=== PATIENT | male | born 1950 | race Caucasian/White ===

== ENCOUNTER 2017-11-02 13:00 | Inpatient (IN) ==
[2017-11-02 14:44] LABS: Appearance,Urine CLEAR; Bilirubin,Urine NEG (NEG); Color,Urine YELLOW; Glucose,Urine (UA) NEGATIVE (NEG); Leukocyte Esterase,Urine NEG /uL (NEG); Protein,Urine NEG (NEG); Specific Gravity,Urine 1.024 (1.000-1.035); Urine Blood NEG mg/dL (<0.03)
[2017-11-02 14:57] LABS: Basophils # (Auto) 0 K/mcL (0.0-0.3); Basophils % (Auto) 0.4 % (0.0-2.0); Eosinophils # (Auto) 0.3 K/mcL (0.0-0.7); Eosinophils % (Auto) 2.6 % (0.0-7.0); Granulocytes % (Auto) 59.4 % (38.0-78.0); Lymphocytes # (Auto) 2.9 K/mcL (1.5-4.8); Lymphocytes % (Auto) 29.7 % (15.5-49.0); Mean Cell Volume 87.6 fL (80.0-100.0); Mean Corpuscular HGB Conc 33.9 g/dL (31.0-36.0); Mean Corpuscular Hemoglobin 29.7 pg (26.0-34.0); Monocytes # (Auto) 0.8 K/mcL (0.1-0.9); Monocytes % (Auto) 7.9 % (1.0-12.0); Platelet Count 246 K/mcL (140-440); RBC 5.58 M/mcL (4.50-5.90); Red Cell Distribution Width 13.4 % (11.5-14.5)
[2017-11-02 15:49] LABS: Blood Urea Nitrogen 17 mg/dl (8-23)
[2017-11-08] MEDS ORDERED: ceFAZolin 1 GM VIAL IV SCH ×2 (05:00→10:30)
[2017-11-08] MEDS ORDERED: oxyCODONE 10 MG TAB.ER.12H PO SCH ×2 (05:00→10:30)
[2017-11-08] MEDS ORDERED: CELECOXIB 200 MG CAPSULE PO SCH ×2 (05:00→10:30)
[2017-11-08] MEDS ORDERED: ACETAMINOPHEN 500 MG TABLET PO SCH ×2 (05:00→10:30)
[2017-11-08] MEDS ORDERED: PREGABALIN 75 MG CAPSULE PO SCH ×2 (05:00→10:30)
[2017-11-08] MEDS ORDERED: KETOROLAC 30 MG, ROPIVACAINE HCL/PF 49.5 ML, EPINEPHrine 0.5 MG, 0.9 % SODIUM CHLORIDE ... IJ SCH (10:00)
[2017-11-08] MEDS ORDERED: GENTAMICIN SULFATE 800 MG/20 ML VIAL IR ONE (11:03)
[2017-11-08] MEDS ORDERED: TRANEXAMIC ACID 1,000 MG/10 ML VIAL IV ONE ×3 (11:55→13:47)
[2017-11-08] MEDS ORDERED: DEXAMETHASONE 10 MG/ML VIAL IV ONE (11:55)
[2017-11-08] MEDS ORDERED: ONDANSETRON 4 MG/2 ML VIAL IV ONE (11:55)
[2017-11-08] MEDS ORDERED: PROPOFOL 200 MG/20 ML VIAL IV ONE (11:55)
[2017-11-08] MEDS ORDERED: LIDOCAINE HCL/PF 100 MG/5 ML SYRINGE IV ONE (11:55)
[2017-11-08] MEDS ORDERED: ePHEDrine 50 MG/ML AMPUL IV ONE (11:55)
[2017-11-08] MEDS ORDERED: MIDAZOLAM 5 MG/5 ML VIAL IV ONE (11:55)
[2017-11-08] MEDS ORDERED: PROMETHAZINE 25 MG/ML VIAL IV PRN (12:48)
[2017-11-08] MEDS ORDERED: IPRATROPIUM/ALBUTEROL 3 ML AMPUL.NEB NEB PRN (12:48)
[2017-11-08] MEDS ORDERED: fentaNYL 100 MCG/2 ML VIAL IV PRN (12:48)
[2017-11-08] MEDS ORDERED: NALOXONE HCL 0.4 MG/ML VIAL IV PRN (12:48)
[2017-11-08] MEDS ORDERED: FLUMAZENIL 0.1 MG/ML ML IV PRN (12:48)
[2017-11-08] MEDS ORDERED: ONDANSETRON 4 MG/2 ML VIAL IV PRN ×2 (12:48→13:24)
[2017-11-08] MEDS ORDERED: LACTATED RINGERS 250 ML IV PRN (12:48)
[2017-11-08] MEDS ORDERED: diphenhydrAMINE 50 MG/ML VIAL IV PRN (12:48)
[2017-11-08] MEDS ORDERED: MEPERIDINE 50 MG/ML INJECTION IV PRN (12:48)
[2017-11-08] MEDS ORDERED: BENZOCAINE/MENTHOL 1 LOZENGE PO PRN ×2 (12:48→13:24)
[2017-11-08] MEDS ORDERED: LACTATED RINGERS 1,000 ML IV SCH (13:00)
[2017-11-08] MEDS ORDERED: HYDROmorphone 2 MG/ML VIAL IV PRN (13:24)
[2017-11-08] MEDS ORDERED: TEMAZEPAM 15 MG CAPSULE PO PRN (13:24)
[2017-11-08] MEDS ORDERED: FLEETS ADULT ENEMA PR PRN (13:24)
[2017-11-08] MEDS ORDERED: MAGNESIUM HYDROXIDE 30 ML ORAL.SUSP PO PRN (13:24)
[2017-11-08] MEDS ORDERED: POLYETHYLENE GLYCOL 3350 17 GM PACKET PO PRN (13:24)
[2017-11-08] MEDS ORDERED: ACETAMINOPHEN 325 MG TABLET PO PRN (13:24)
[2017-11-08] MEDS ORDERED: BISACODYL 10 MG SUPP.RECT PR PRN (13:24)
[2017-11-08] MEDS ORDERED: KETOROLAC 15 MG/ML VIAL IV PRN (13:24)
[2017-11-08] MEDS ORDERED: HYDROcodone/APAP 10/325MG TABLET PO PRN (13:24)
--- NOTE | 2017-11-08 13:31 | Brief Operative Note ---
Date of procedure: 11/08/17 Pre-op diagnosis: Left hip djd severe Post-op diagnosis: same Procedure: left mayelin Grafts/Implants: Yes Anesthesia: GETA Findings: none Complications: none Complications Description: 11/08/17 13:30 none Surgeon: Dilshad Thompson Lens Generating Machine Tender: Maxi Arriaga Estimated blood loss (cc): 50 Specimens Removed/Pathology: none sent Condition: stable Disposition: PACU
--- NOTE | 2017-11-08 14:10 | XRay Report ---
CLINICAL INFORMATION: Postop total left hip prostheses COMPARISON: None. FINDINGS: Total hip prostheses is anatomically aligned. Focal calcification is seen about the inferior capsule. No other osseous abnormality. Moderate L5-S1 L4-5 degenerative disc disease noted IMPRESSION: Left hip prostheses is anatomically aligned. Small amount of calcification overlying the inferior left hip capsule Interpreted and Authenticated by: Harris Horton 11/08/17
[2017-11-08] MEDS: 0.45 % SODIUM CHLORIDE 1,000 ML IV SCH ×2 (14:24→23:44)
[2017-11-08] MEDS: 0.9 % SODIUM CHLORIDE 10 ML SYRINGE IV SCH ×2 (14:24→21:52)
--- NOTE | 2017-11-08 16:26 | Operative Note ---
DATE OF OPERATION: 11/08/2017 PREOPERATIVE DIAGNOSIS: Left hip degenerative arthritis. POSTOPERATIVE DIAGNOSIS: Left hip degenerative arthritis. PROCEDURE: Left total hip arthroplasty from a superior-posterior approach. SURGEON: Dilshad Thompson M.D. IMPLANTS: Augusto cementless components with a 2.5+ ceramic neck length with a 36 mm head with a 60 mm cementless cup. COMPLICATIONS: None. ESTIMATED BLOOD LOSS: Less than 50 mL. ANESTHESIA: General LMA anesthesia with spinal. DESCRIPTION OF PROCEDURE: The patient was brought to the operating room and put to sleep with general LMA anesthesia. Once asleep, the patient had the left hip sterilely prepped and draped in the usual sterile fashion. Ioban placed over the skin. Timeout performed. We confirmed this as the operative site on the left hip. Preop antibiotics and tranexamic acid had been given. We made a superior-posterior approach, dissected through the muscle layer, identified the short external rotator, piriformis obturator internus, as well as the capsule was released and tagged. Once these were released, we dislocated the head. Once this was done, we made our neck cut at 34 mm for a size 5 stem. Once done, the head was removed. We then reamed up the acetabulum up to the size 59, implanted a 60 cup cementless, anteversion 20 degrees, inclination is 40 degrees. We then broached up on the femur, reamed up to the size of 12 distally and took an x-ray with a size 4 stem. This was slightly short, just a couple millimeters. We then implanted a size 5 stem which slightly countersunk as well. This had a 2 mm longer neck. We placed a 2.5 mm neck. This seemed to be very stable and equal leg lengths on the table. We irrigated thoroughly, repaired the capsule with #2 Vicryl, thoroughly irrigated, injected the soft tissues with 50 mL of the post-inject formula. We closed the fascial layer with #1 Stratafix. We then closed the skin with Stratafix and 2-0 Vicryl and adhesive closure. The patient tolerated this well without complication. RBH:jeanette Job ID: [id number] Doc ID: [id number] Dilshad Thompson MD
--- NOTE | 2017-11-08 16:26 | Operative Note ---
DATE OF OPERATION: 11/08/2017 PREOPERATIVE DIAGNOSIS: Left hip degenerative arthritis, severe. POSTOPERATIVE DIAGNOSIS: Left hip degenerative arthritis, severe. PROCEDURE: Left total hip arthroplasty using Augusto components. SURGEON: Dilshad Thompson M.D. TIGER MACHINE OPERATOR: Maxi Arriaga PA-C. ANESTHESIA: Spinal with general LMA anesthesia. COMPLICATIONS: None. IMPLANTS: [place] components, all cementless components. DESCRIPTION OF PROCEDURE: The patient was brought to the operating room and put to sleep with general LMA anesthesia. Once asleep, the patient had the left hip confirmed as the operative site. Preop antibiotics and tranexamic acid had been given. With this, the patient then had an incision made superior-posteriorly and a Charnley retractor placed. We released the capsule superiorly and the short external rotators, exposed the joint, dislocated the hip and made our neck cut at 34 mm in length. We then reamed up to a size 59, implanted a 60 cup with no screws, 20 degrees of anteversion and inclination 40 degrees. A 36 mm poly liner was placed. The femur was broached up to size 4, and it had an x-ray at this position showing slight leg length shortening on the left compared to the right. Once this was done, we then broached up to a size 5 and then placed a +2.5 mm neck. This seemed to be very appropriate stability and range of motion and leg length measurement on the table. We irrigated thoroughly and closed the capsule posteriorly after injecting the soft tissues with the post-inject formula. The fascial layer was closed with #1 Stratafix. Skin was closed with #1 Stratafix and adhesive closure. The patient tolerated this well. There was no complication. RBH:jeanette Job ID: [id number] Doc ID: [id number] Dilshad Thompson MD
[2017-11-08] MEDS: ceFAZolin 1 GM VIAL IV SCH (19:41)
[2017-11-08] MEDS ORDERED: ATORVASTATIN 20 MG TABLET PO SCH (21:00)
[2017-11-08] MEDS ORDERED: SENNOSIDES 1 TABLET PO SCH (21:00)
[2017-11-08] MEDS: DOCUSATE SODIUM 100 MG CAPSULE PO SCH (21:52)
[2017-11-08] MEDS: ASPIRIN 325 MG ENTERIC COATED TABLET PO SCH (21:52)
[2017-11-09] MEDS: ceFAZolin 1 GM VIAL IV SCH (03:26)
[2017-11-09] MEDS: 0.9 % SODIUM CHLORIDE 10 ML SYRINGE IV SCH (05:17)
--- NOTE | 2017-11-09 07:34 | Orthopedic Progress Note ---
Subjective Patient information: Note initiated : 11/09/17 at 7:32 am Service Date, if different from initiated Date: [] Patient: Jose Hair 67 y/o M admitted on 11/08/17 for Left Total Hip Arthroplasty. Chief Complaint: [Pt is stable this morning on post operative day 1 without any significant concerns or complaints. Patients vital signs have remained stable. Patients dressing is dry and is grossly instact from a neurovascular and motor standpoint. Patients 10 point ROS is otherwise negative. ] Objective Vital signs: Vital Signs Temp Pulse Resp BP BP Pulse Ox 11/09/17 07:20 97.3 F 70 14 104/62 93 11/09/17 07:06 82 16 97 11/09/17 06:59 97 11/09/17 06:05 97 11/09/17 03:32 95 11/09/17 03:31 97.4 F 88 14 152/79 95 11/09/17 02:10 97 11/09/17 00:00 97 11/08/17 23:53 97.6 F 84 14 155/85 97 11/08/17 22:00 97 11/08/17 20:00 97.6 F 82 14 146/88 97 11/08/17 18:00 99 11/08/17 17:10 123/74 99 11/08/17 16:29 97 11/08/17 16:10 108/62 93 11/08/17 15:41 115/66 96 11/08/17 15:11 118/59 100 11/08/17 14:57 121/70 100 11/08/17 14:42 119/68 99 11/08/17 14:30 68 16 97 11/08/17 14:27 98 11/08/17 14:26 119/67 97 11/08/17 14:11 141/71 97 11/08/17 14:04 97.9 F 81 15 120/69 99 11/08/17 13:58 80 14 123/78 100 11/08/17 13:54 75 19 123/73 100 11/08/17 13:49 73 14 105/69 98 11/08/17 13:44 60 13 106/62 98 11/08/17 13:39 62 14 101/57 98 11/08/17 13:34 96.2 F L 65 11 L 104/89 97 11/08/17 09:30 58 L 97 11/08/17 09:11 97.0 F 18 160/91 97 Intake and Output 11/08/17 11/09/17 11/09/17 21:59 05:59 13:59 Intake Total 555 / 555 1658 / 1658 773 / 773 Output Total 625 / 625 1275 / 1275 575 / 575 Balance -70 / -70 383 / 383 198 / 198 Intake: IV 933 / 933 773 / 773 Sodium Chloride 0.45% 1,000 ml 933 / 933 773 / 773 @ 100 mls/hr IV .Q10H NICK Rx#: [id number] Oral 480 / 480 725 / 725 IV - Manual Only 75 / 75 Output: Void Amount 625 / 625 1275 / 1275 575 / 575 Other: Meal Dinner Percent of Meal Consumed 100% Feeding Ability Independent # Voids 1 1 Weight 181 lb Intake & Output: Intake & Output 11/08/17 11/09/17 11/09/17 21:59 05:59 13:59 Intake Total 555 / 555 1658 / 1658 773 / 773 Output Total 625 / 625 1275 / 1275 575 / 575 Balance -70 / -70 383 / 383 198 / 198 Weight 181 lb Intake: IV 933 / 933 773 / 773 Sodium Chloride 0.45% 1,000 ml 933 / 933 773 / 773 @ 100 mls/hr IV .Q10H NICK Rx#: [id number] Oral 480 / 480 725 / 725 IV - Manual Only 75 / 75 Output: Void Amount 625 / 625 1275 / 1275 575 / 575 Other: Meal Dinner Percent of Meal Consumed 100% Feeding Ability Independent # Voids 1 1 Incision: Yes healing Incision clean and dry: Yes Dressing: Yes clean Weight bearing status: full Neurological exam IM: Yes motor sensory intact, Yes neurovascular intact Extremities exam IM: Yes Foot pink and warm, Yes neurovascular intact - Labs CBC & BMP: 11/09/17 04:35 11/02/17 13:30 Labs: Orthopedic Labs 11/02/17 13:30 PT 14.0 INR 1.1 APTT 32 11/09/17 11/02/17 04:35 13:31 Hgb 16.6 H Hct 40.3 L 48.8 Assessment and Plan (1) Hx of total hip arthroplasty The patient has been educated regarding dressing care, Physical Therapy recommendations, home exercises, restrictions, and follow up appointments. The patient has had all necessary DME prescribed. The patient has remained stable during their hospital course. The patient was discharge with a stable exam. Leave Dermabond patch intact until followup Status: Acute
--- NOTE | 2017-11-09 07:38 | Discharge Summary ---
Ortho Discharge - [facility] - Patient Instructions Diet: Regular Diet Activity: activity as tolerated, weight bearing as tolerated Total Hip Protocol: Follow activity instructions as provided by Physical Therapy. Dressing Care: May shower in 2 days Patient Education: Total Hip Replacement (DC) - Problem Maintenance (1) Hx of total hip arthroplasty Status: Acute - Follow Up Plan Follow Up Appointments: Maxi Arriaga PA-C [Physician Environmental Sampler] - 11/23/17 10:00 am Disposition: Home, Self-Care Prognosis: Good Rehab Potential: Good I certify that the patient requires SNF services: No Overall status at discharge: patient is progressing back to baseline - Orders For Discharge Prescriptions: Aspirin [Ecotrin] 325 mg PO BID #60 tab.ec Docusate Sodium [Colace] 100 mg PO BID #60 cap HYDROcodone/APAP 10/325MG [[place] 10-325Mg] 1 - 2 tab PO Q4HP PRN #75 tab PRN Reason: Pain Level 3-6
[2017-11-09] MEDS: DOCUSATE SODIUM 100 MG CAPSULE PO SCH (09:23)
[2017-11-09] MEDS: ASPIRIN 325 MG ENTERIC COATED TABLET PO SCH (09:23)
[2017-11-09] MEDS: 0.45 % SODIUM CHLORIDE 1,000 ML IV SCH (09:43)
== END 2017-11-09 11:25 | disposition home or self-care (01) | DRG 470 ==
LOC: MEDSUR 11-08 08:46
PROVIDERS: ADMIT Orthopaedic Surgery; ATTEND Orthopaedic Surgery